=== PATIENT | female | born 1990 | race Caucasian/White ===

== ENCOUNTER 2016-12-08 09:20 | Inpatient (IN) | payer OTHER ==
[2016-12-08 11:05] VITALS: BMI 45.1
[2016-12-08 11:09] LABS: BASOPHIL 0.4 % (0-2.0); EOSINOPHIL 1.5 % (0-4.5); MCH 29.5 pg (25.7-33.7); MEAN CELL VOLUME 86.8 fl (80-96); MEAN PLT VOLUME 9.6 fl (7.5-11.1); NEUTROPHILS 75.2 % (42.8-82.8); PLATELET COUNT 233 K/MM3 (134-434); RDW 15.1 % (11.6-15.6); WHITE BLOOD COUNT 10.9 K/mm3 (4.0-10.0)
[2016-12-08 11:26] LABS: INR 0.98 (0.82-1.09); PROTHROMBIN TIME (PATIENT) 10.8 SEC (9.98-11.88)
[2016-12-08 11:29] LABS: ACTIVATED PTT 25.9 SECONDS (26.9-34.4)
[2016-12-08] MEDS: DEXTROSE 5%-LACTATED RINGERS 1,000 ML IV SCH ×2 (11:30→16:47)
[2016-12-08 11:31] LABS: ANION GAP 8 (8-16); CALCIUM 8.5 mg/dL (8.5-10.1); CO2 21 mmol/L (21-32); CREATININE 0.5 mg/dL (0.55-1.02); GLUCOSE,RANDOM 121 mg/dL (74-106)
--- NOTE | 2016-12-08 11:39 | HP ---
Past Medical History - Admission Chief Complaint: Postterm History of Present Illness: 26 yo @ 41 weeks gestation, EDC 11/30/16, presents for induction of labor. She denies any contractions pain. History Source: Patient Limitations to Obtaining History: No Limitations - Past Medical History ...: 2 ...Para: 1 ...Term: 1 ...LMP: 02/24/16 ... Weeks Gestation by Dates: 41.0 ...EDC by Dates: 12/01/16 ...EDC by Sono: 11/30/16 - Past Surgical History Past Surgical History: Yes: None Hx Myomectomy: No Hx Transabdominal Cerclage: No - Smoking History Smoking history: Never smoked Have you smoked in the past 12 months: No Aproximately how many cigarettes per day: 0 - Alcohol/Substance Use Hx Alcohol Use: No History of Substance Use: reports: None - Social History Usual Living Arrangement: Yes: With Spouse History of Recent Travel: No Home Medications - Allergies Allergies/Adverse Reactions: Allergies Allergy/AdvReac Type Severity Reaction Status Date / Time No Known Allergies Allergy Verified 12/08/16 10:08 - Home Medications Home Medications: Ambulatory Orders Vit/Iron Fumarate/FA [ Tablet] 1 tab PO DAILY 12/08/16 Family Disease History - Family Disease History Family History: Unremarkable Review of Systems - Review of Systems Constitutional: reports: No Symptoms Eyes: reports: No Symptoms HENT: reports: No Symptoms Neck: reports: No Symptoms Cardiovascular: reports: No Symptoms Gastrointestinal: reports: No Symptoms Genitourinary: reports: No Symptoms Breasts: reports: No Symptoms Reported Musculoskeletal: reports: No Symptoms Integumentary: reports: No Symptoms Neurological: reports: No Symptoms Endocrine: reports: No Symptoms Hematology/Lymphatic: reports: No Symptoms Psychiatric: reports: No Symptoms Pain Intensity: 0 Physical Exam - Maternity Vital Signs: Vital Signs Temperature 98.0 F 12/08/16 10:30 Pulse Rate 87 12/08/16 11:00 Respiratory Rate 20 12/08/16 11:00 Blood Pressure 122/68 12/08/16 11:00 O2 Sat by Pulse Oximetry (%) Constitutional: Yes: Well Nourished Eyes: Yes: Conjunctiva Clear HENT: Yes: Atraumatic Neck: Yes: Supple Cardiovascular: Yes: Regular Rate and Rhythm Lungs: Clear to auscultation Breast(s): Yes: WNL - Abdominal Exam/OB Number of Fetuses: Single Presentation: Vertex Contractions: No - Vaginal Exam/OB Station: -3 - Physical Exam ...Motor Strength: WNL Psychiatric: Yes: Alert, Oriented - Labs Lab Results: CBC, BMP 12/08/16 11:00 12/08/16 11:00 Problem List - Problems (1) Post term at 41 weeks gestation Code(s): O48.0 - POST-TERM Z3A.41 - 41 WEEKS GESTATION OF (2) Obesity Code(s): E66.9 - OBESITY, UNSPECIFIED Qualifiers: Obesity classification: adult class 2 (BMI 35 ? 39.9) Assessment/Plan Post term Admit for Cervidil induction
[2016-12-08] MEDS ORDERED: DINOPROSTONE 10 MG VAGINAL SUPPOSITORY VG ONE (12:00)
--- NOTE | 2016-12-08 22:17 | PN ---
Progress Note (short form) - Note Progress Note: 26 yo @ 41 weeks gestation, admitted for IOL, seen and evaluated. She c/o mild discomfort. FHR : Reassuring [place] : +irregular contractions VE : 1-2 cm / 605 / -[address] A/P : Posterm D/C Cervidil at 11:30 pm Pitocin augmentation Analgesia as needed Problem List - Problems (1) Post term at 41 weeks gestation Code(s): O48.0 - POST-TERM Z3A.41 - 41 WEEKS GESTATION OF (2) Obesity Code(s): E66.9 - OBESITY, UNSPECIFIED Qualifiers: Obesity classification: adult class 2 (BMI 35 ? 39.9)
[2016-12-08] MEDS ORDERED: OXYTOCIN 15 UNITS/ LR 250 ML 250 ML IVPB SCH (23:59)
[2016-12-09] MEDS: BUTORPHANOL TARTRATE 1 MG/ML VIAL IVPUSH PRN ×2 (00:15→05:10)
[2016-12-09] MEDS: PROMETHAZINE HCL 25 MG/1 ML VIAL IVPUSH PRN ×2 (00:15→05:10)
[2016-12-09] MEDS: DEXTROSE 5%-LACTATED RINGERS 1,000 ML IV SCH (03:15)
[2016-12-09] MEDS: D5W-LR W/ 20 UNITS OXYTOCIN 1,000 ML IV SCH ×2 (07:15→11:00)
[2016-12-09] MEDS ORDERED: BISACODYL 10 MG SUPP.RECT RC PRN (07:58)
[2016-12-09] MEDS ORDERED: IBUPROFEN 600 MG TABLET (FP) PO PRN (07:58)
[2016-12-09] MEDS ORDERED: METHYLERGONOVINE MALEATE 0.2 MG/1 ML AMP IM PRN (07:58)
[2016-12-09] MEDS ORDERED: ACETAMINOPHEN 325 MG TABLET (FP) PO PRN (07:58)
[2016-12-09] MEDS ORDERED: BENZOCAINE 28 GM HEMORRHOIDAL OINTMENT TP PRN (07:58)
[2016-12-09] MEDS ORDERED: BENZOCAINE 20% 57 GM BOTTLE TP PRN (07:58)
[2016-12-09] MEDS ORDERED: WITCH HAZEL 50% (TUCKS) 40 PAD/JAR PAD TP PRN (07:58)
--- NOTE | 2016-12-09 08:06 | PN ---
Delivery - Delivery Type of Anesthesia: Local Episiotomy/Laceration: 3rd degree EBL (cc): 350 Delivery, Single - Feeding Plan Initial Plan: Elected not to breastfeed exclusively throughout hospitalization Remarks - Remarks Remarks: Normal spontaneous vaginal delivery of a live infant over third degree laceration. Nose / Oropharynx suction @ perineum. Cord clamped and cut. Placenta expelled spontaneously intact. Laceration repaired with 2.0 Chromic.
[2016-12-09] MEDS: FERROUS SO4 325 MG TABLET (FP) PO SCH ×3 (09:52→17:11)
[2016-12-09] MEDS: PRENATAL VITAMINS W/ FOLIC ACID TABLET (FP) PO SCH (10:38)
[2016-12-10 07:52] LABS: BASOPHIL 0.5 % (0-2.0); EOSINOPHIL 1.8 % (0-4.5); MCH 29.2 pg (25.7-33.7); MCHC 33.7 g/dl (32.0-36.0); MEAN CELL VOLUME 86.7 fl (80-96); NEUTROPHILS 65.4 % (42.8-82.8); PLATELET COUNT 186 K/MM3 (134-434); RDW 15.1 % (11.6-15.6); WHITE BLOOD COUNT 13.3 K/mm3 (4.0-10.0)
[2016-12-10] MEDS: FERROUS SO4 325 MG TABLET (FP) PO SCH ×3 (08:02→17:19)
[2016-12-10] MEDS: PRENATAL VITAMINS W/ FOLIC ACID TABLET (FP) PO SCH (09:50)
--- NOTE | 2016-12-10 09:59 | PN ---
Post Progress Note - Subjective Subjective: 26 yo Para 2 status post vaginal delivery, seen and evaluated. Doing well. Post Day: 1 Type of Delivery: Vital Signs: Vital Signs Temperature 98 F 12/10/16 05:26 Pulse Rate 84 12/10/16 05:26 Respiratory Rate 19 12/10/16 05:26 Blood Pressure 115/57 12/10/16 05:26 O2 Sat by Pulse Oximetry (%) 97 12/10/16 09:00 Uterus: Yes: Fundus Firm Abdomen/GI: Yes: Abdomen soft, Tolerating PO Lochia: Yes: Rubra Lochia, amount: Small Extremities: Yes: Calves non-tender Perineum: Yes: Laceration (Healing) Activity: Ambulating - Labs Labs: CBC WBC 13.3 K/mm3 (4.0-10.0) H 12/10/16 06:00 RBC 3.31 M/mm3 (3.60-5.2) L 12/10/16 06:00 Hgb 9.7 GM/dL (10.7-15.3) L D 12/10/16 06:00 Hct 28.7 % (32.4-45.2) L D 12/10/16 06:00 MCV 86.7 fl (80-96) 12/10/16 06:00 MCH 29.2 pg (25.7-33.7) 12/10/16 06:00 MCHC 33.7 g/dl (32.0-36.0) 12/10/16 06:00 RDW 15.1 % (11.6-15.6) 12/10/16 06:00 Plt Count 186 K/MM3 (134-434) D 12/10/16 06:00 MPV 10.0 fl (7.5-11.1) 12/10/16 06:00 Neutrophils % 65.4 % (42.8-82.8) 12/10/16 06:00 Lymphocytes % 27.6 % (8-40) D 12/10/16 06:00 Monocytes % 4.7 % (3.8-10.2) 12/10/16 06:00 Eosinophils % 1.8 % (0-4.5) 12/10/16 06:00 Basophils % 0.5 % (0-2.0) 12/10/16 06:00 Problem List - Problems (1) Post term at 41 weeks gestation Code(s): O48.0 - POST-TERM Z3A.41 - 41 WEEKS GESTATION OF (2) Obesity Code(s): E66.9 - OBESITY, UNSPECIFIED Qualifiers: Obesity classification: adult class 2 (BMI 35 ? 39.9) Assessment/Plan Status post normal vaginal delivery Stable Continue routine care
[2016-12-10] MEDS ORDERED: DIPHTH,PERTUSS(ACELL),TET 0.5 ML DISP.SYRIN IM ONE (10:00)
[2016-12-10] MEDS ORDERED: FLU VACC QS2017-18 36MOS UP/PF 60 MCG/0.5 ML SYRINGE IM ONE (10:00)
[2016-12-10] MEDS ORDERED: SENNOSIDES/DOCUSATE COMBO (SENNA PLUS) TABLET (UD) PO PRN (22:00)
[2016-12-11] MEDS: FERROUS SO4 325 MG TABLET (FP) PO SCH ×2 (08:15→11:27)
[2016-12-11 09:31] VITALS: BP 120/63; PULSE 84; TEMP 98.3
[2016-12-11] MEDS: PRENATAL VITAMINS W/ FOLIC ACID TABLET (FP) PO SCH (09:48)
== END 2016-12-11 14:40 | disposition home or self-care (01) | DRG 542 ==
LOC: JDEL 09:20 → JLDR 10:15 → J3W 12-09 09:05
PROVIDERS: ADMIT Obstetrics & Gynecology; ATTEND Obstetrics & Gynecology
PROC: 3E0P7GC Introduction of Other Therapeutic Substance into Female Reproductive, Via Natural or Artificial Opening (ICD-10-PCS; 2016-12-08)
PROC: 10E0XZZ Delivery of Products of Conception, External Approach (ICD-10-PCS; principal; 2016-12-09)
PROC: 0W8NXZZ Division of Female Perineum, External Approach (ICD-10-PCS; 2016-12-09)
PROC: 0DQR0ZZ Repair Anal Sphincter, Open Approach (ICD-10-PCS; 2016-12-09)
DX: O70.20 Third degree perineal laceration during delivery, unspecified (principal); O48.0 Post-term pregnancy; Z3A.41 41 weeks gestation of pregnancy; O99.214 Obesity complicating childbirth; E66.9 Obesity, unspecified; Z68.42 Body mass index [BMI] 45.0-49.9, adult; Z37.0 Single live birth
CPT/HCPCS: 36415; 59409; 80048; 85025; 85610; 85730; 86593; 86850; 86900; 86901; 90686; 90715; G0008

== ENCOUNTER 2021-01-10 03:05 | Inpatient (IN) | payer OTHER ==
[2021-01-10] MEDS ORDERED: ELECTROLYTE-148 SOLN 1,000 ML IV SCH (07:30)
[2021-01-10 08:10] VITALS: BMI 48.4
[2021-01-10 08:51] LABS: BASO % 0.3 % (0-2.0); EOS % 1.7 % (0-4.5); HEMATOCRIT 34.9 % (32.4-45.2); HEMOGLOBIN 11.8 GM/dL (10.7-15.3); LYMPH % 19.3 % (8-40); MCH 28.8 pg (25.7-33.7); MCHC 33.9 g/dl (32.0-36.0); MEAN CELL VOLUME 84.9 fl (80-96); MEAN PLT VOLUME 9.8 fl (7.5-11.1); MONO % 3.6 % (3.8-10.2); NEUT % 75.1 % (42.8-82.8); PLATELET COUNT 247 10^3/uL (134-434); RBC 4.11 M/mm3 (3.60-5.2); RDW 14.8 % (11.6-15.6); WHITE BLOOD COUNT 14.9 K/mm3 (4.0-10.0)
[2021-01-10 08:58] LABS: INR 0.92 (0.83-1.09); PROTHROMBIN TIME (PATIENT) 10.7 SEC (9.7-13.0)
[2021-01-10 09:13] LABS: CALCIUM 8.5 mg/dL (8.5-10.1)
[2021-01-10 09:14] LABS: BLOOD UREA NITROGEN 9.6 mg/dL (7-18)
[2021-01-10 09:17] LABS: CREATININE 0.5 mg/dL (0.55-1.3)
[2021-01-10] MEDS ORDERED: BUTORPHANOL TARTRATE 2 MG/ML VIAL ONE (10:10)
[2021-01-10] MEDS ORDERED: PROMETHAZINE HCL 25 MG/1 ML VIAL ONE (10:10)
[2021-01-10] MEDS ORDERED: PROMETHAZINE HCL 25 MG/1 ML VIAL IVPUSH ONE (10:15)
[2021-01-10] MEDS ORDERED: BUTORPHANOL TARTRATE 1 MG/ML VIAL IVPUSH ONE (10:15)
[2021-01-10] MEDS ORDERED: OXYTOCIN 20 UNITS in 0.9% NS 20 UNIT/1,000 ML INFUS.BAG IV ONE (11:39)
[2021-01-10] MEDS ORDERED: OXYTOCIN 30 UNITS in 0.9% NS 30 UNIT/500 ML INFUS.BAG IVPB SCH (11:45)
[2021-01-10] MEDS ORDERED: PCA PUMP NR ONE (12:56)
[2021-01-10] MEDS ORDERED: FENTANYL/BUPIVACAINE/NS/PF - PCEA - 50 ML DISP.SYRIN EP ONE (12:56)
[2021-01-10] MEDS ORDERED: FENTANYL/BUPIVACAINE/NS/PF - PCEA - 50 ML DISP.SYRIN EP SCH (13:25)
[2021-01-10] MEDS ORDERED: NALOXONE HCL 0.4 MG/ML VIAL IVPUSH PRN (13:34)
[2021-01-10] MEDS ORDERED: BENZOCAINE 28 GM HEMORRHOIDAL OINTMENT TP PRN (14:16)
[2021-01-10] MEDS ORDERED: BENZOCAINE 20% 57 GM BOTTLE TP PRN (14:16)
[2021-01-10] MEDS ORDERED: IBUPROFEN 600 MG TABLET (FP) PO PRN (14:16)
[2021-01-10] MEDS ORDERED: BISACODYL 10 MG SUPP.RECT RC PRN (14:16)
[2021-01-10] MEDS ORDERED: METHYLERGONOVINE MALEATE 0.2 MG/1 ML AMP IM PRN (14:16)
[2021-01-10] MEDS ORDERED: ACETAMINOPHEN 325 MG TABLET (FP) PO PRN (14:16)
[2021-01-10] MEDS ORDERED: WITCH HAZEL 50% (TUCKS) 40 PAD/JAR PAD TP PRN (14:16)
[2021-01-10] MEDS ORDERED: OXYTOCIN 20 UNITS in 0.9% NS 20 UNIT/1,000 ML INFUS.BAG IV SCH (14:30)
[2021-01-10 15:26] LABS: CORD PCO2 73.3 mmHg (30-78); CORD pH 7.114 (7.14-7.44)
[2021-01-10 15:30] LABS: CORD BASE EXCESS -5.5 mmol/L (0-2); CORD HCO3 21.3 mmHg (20-29); CORD PCO2 46.2 mmHg (30-78); CORD pH 7.282 (7.14-7.44)
[2021-01-10] MEDS: FERROUS SO4 325 MG TABLET (FP) PO SCH (21:11)
[2021-01-11 07:41] LABS: BASO % 0.5 % (0-2.0); EOS % 1.7 % (0-4.5); HEMATOCRIT 32.1 % (32.4-45.2); LYMPH % 21.6 % (8-40); MCH 29.2 pg (25.7-33.7); MCHC 34.1 g/dl (32.0-36.0); MEAN CELL VOLUME 85.6 fl (80-96); MEAN PLT VOLUME 9.5 fl (7.5-11.1); MONO % 3.9 % (3.8-10.2); NEUT % 72.3 % (42.8-82.8); PLATELET COUNT 216 10^3/uL (134-434); RBC 3.75 M/mm3 (3.60-5.2); RDW 15.3 % (11.6-15.6)
[2021-01-11] MEDS ORDERED: FLU VACC QS2021-22(6MOS UP)/PF 60 MCG/0.5 ML SYRINGE IM ONE (10:00)
[2021-01-11] MEDS: PRENATAL VITAMINS W/ FOLIC ACID TABLET (FP) PO SCH (10:33)
[2021-01-11] MEDS: FERROUS SO4 325 MG TABLET (FP) PO SCH ×2 (10:33→23:22)
[2021-01-11] MEDS ORDERED: SENNOSIDES/DOCUSATE COMBO (SENNA PLUS) TABLET (UD) PO PRN (22:00)
[2021-01-11 22:18] VITALS: TEMP 97.6
[2021-01-12] MEDS: PRENATAL VITAMINS W/ FOLIC ACID TABLET (FP) PO SCH (09:25)
[2021-01-12] MEDS: FERROUS SO4 325 MG TABLET (FP) PO SCH (09:25)
[2021-01-12 10:46] VITALS: BP 111/72; PULSE 88
== END 2021-01-12 16:00 | disposition home or self-care (01) | DRG 560 ==
LOC: JDEL 03:05 → JLDR 07:15 → J3W 15:55
PROVIDERS: ADMIT Obstetrics & Gynecology; ATTEND Obstetrics & Gynecology
PROC: 0HQ9XZZ Repair Perineum Skin, External Approach (ICD-10-PCS; principal; 2021-01-10)
PROC: 10E0XZZ Delivery of Products of Conception, External Approach (ICD-10-PCS; 2021-01-10)
DX: O99.214 Obesity complicating childbirth (principal); E66.9 Obesity, unspecified; O70.0 First degree perineal laceration during delivery; Z3A.40 40 weeks gestation of pregnancy; Z37.0 Single live birth
CPT/HCPCS: 36415; 36600; 59025; 59409; 80048; 82803; 83986-QW; 85025; 85610; 85730; 86780; 86850; 86900; 86901; 90686; C9803; G0008; U0003; U0005